=== PATIENT | male | born 1945 | race Caucasian/White ===

== ENCOUNTER 2017-01-17 17:36 | Emergency (ER) | payer MEDICARE ==
[2017-01-17 18:47] LABS: HEMOGLOBIN 16.6 gm/dl (14.0-17.5); RED BLOOD COUNT 5.43 M/UL (4.20-5.50); WHITE BLOOD COUNT 8.6 K/UL (4.5-11.0)
[2017-01-17 19:14] LABS: BUN/CREATININE RATIO 12 (0-10)
== END 2017-01-17 23:14 | disposition home or self-care (01) ==
LOC: ER1 17:36
PROVIDERS: Physician Assistant
DX: R07.81 Pleurodynia (principal); E87.6 Hypokalemia; Z88.1 Allergy status to other antibiotic agents
CPT/HCPCS: 36415; 36600; 71010; 71250; 80053; 82550; 82553; 82803; 83874; 83880; 84484; 85025; 85379; 93005; 99284

== ENCOUNTER 2021-05-07 00:12 | Emergency (ER) | payer MEDICARE, BC ==
[2021-05-07 00:49] LABS: HEMOGLOBIN 16.1 gm/dl (14.0-17.5); RED BLOOD COUNT 5.14 M/UL (4.20-5.50)
[2021-05-07 01:16] LABS: BUN/CREATININE RATIO 14 (0-10)
== END 2021-05-07 01:42 | disposition short-term general hospital (02) ==
LOC: ER1 00:12
PROVIDERS: Student in an Organized Health Care Education/Training Program
DX: I63.9 Cerebral infarction, unspecified (principal); I61.9 Nontraumatic intracerebral hemorrhage, unspecified; I10 Essential (primary) hypertension; Z20.822 Contact with and (suspected) exposure to COVID-19; Z79.82 Long term (current) use of aspirin; Z79.02 Long term (current) use of antithrombotics/antiplatelets
CPT/HCPCS: 70450; 71045; 80048; 82550; 82553; 82962; 84484; 85025; 85610; 85730; 93005; 99285; U0002

== ENCOUNTER 2021-07-16 10:51 | Emergency (ER) | payer MEDICARE, BC ==
[2021-07-16 11:51] LABS: HEMOGLOBIN 16.3 gm/dl (14.0-17.5); RED BLOOD COUNT 5.26 M/UL (4.20-5.50); WHITE BLOOD COUNT 10.9 K/UL (4.5-11.0)
[2021-07-16 12:14] LABS: BUN/CREATININE RATIO 18 (0-10)
[2021-07-16] MEDS ORDERED: Voltaren Gel 1% TOP (16:01)
[2021-07-16] MEDS ORDERED: FLEXERIL PO (16:02)
== END 2021-07-16 18:05 | disposition home or self-care (01) ==
LOC: ER1 10:51
PROVIDERS: Physician Assistant Medical
DX: M54.50 Low back pain, unspecified (principal); I10 Essential (primary) hypertension; Z86.73 Personal history of transient ischemic attack (TIA), and cerebral infarction without residual deficits
CPT/HCPCS: 72131; 80053; 81001; 83735; 85025; 96374; 96375; 99284; J1100; J1885; J2270; J2405